=== PATIENT | male | born 1955 | race Caucasian/White ===

== ENCOUNTER → 2019-10-16 | Outpatient (CLI) | payer BC ==
[~2019-10-16] MED LIST: ASPIRIN325 PO; ASPRIMOX 325 M325 MG PO; CARVEDILOL12.5 MG PO; CO Q-10100 MG PO; COREG6.25 MG PO; COUMADIN 3 MG TA3 MG PO; COZAAR 50 MG TA50 M1 PO; COZAAR 50 MG TA50 M2 PO; CRESTOR10 MG PO; EFFIENT10 MG PO; LOVENOX SQ; METROPOLOL PO; PAXIL10 MG; PERCOCET 7.5-31 EACH PO; ZOCOR40 MG PO; ZOFRAN ODT4 MG PO
== END ==
LOC: SJCVCIMAG 10-04 10:34
PROVIDERS: ATTEND Internal Medicine Cardiovascular Disease
DX: I08.1 Rheumatic disorders of both mitral and tricuspid valves (principal); I25.10 Atherosclerotic heart disease of native coronary artery without angina pectoris; I25.5 Ischemic cardiomyopathy